=== PATIENT | female | born 1985 | race Two or more races ===

== ENCOUNTER 2024-07-10 14:37 | Inpatient (IN) | payer MEDICAID ==
[~2024-07-10] VITALS: Ht 165.1 cm; Wt 117.8 kg
[2024-07-10 16:21] VITALS: BP 138/83; PULSE 96; RESP 16; TEMP 97.5; O2SAT 97
[2024-07-10] MEDS ORDERED: ETON68IM4 IL (17:33)
[2024-07-10] MEDS ORDERED: LOP12.5T PO (17:33)
[2024-07-10] MEDS ORDERED: mag hydrox/Alum hydrox/simeth 30ml oral suspension PO PRN (17:55)
[2024-07-10] MEDS ORDERED: diphenhydrAMINE 25mg capsule PO PRN (17:55)
[2024-07-10] MEDS ORDERED: acetaminophen 325mg tablet PO PRN (17:55)
[2024-07-10] MEDS ORDERED: magnesium hydroxide 30ml (MOM) UD suspension PO PRN (17:55)
[2024-07-10] MEDS ORDERED: chlorproMAZINE 25mg tablet PO PRN (17:55)
[2024-07-10] MEDS ORDERED: hydrOXYzine 25 MG tablet PO PRN (17:55)
[2024-07-10] MEDS ORDERED: loperamide 2mg capsule PO PRN (17:55)
[2024-07-10] MEDS ORDERED: traZODone 50mg tablet PO PRN (17:55)
[2024-07-10] MEDS ORDERED: NICOTINE POLACRILEX 2 MG LOZENGE BC PRN (17:55)
[2024-07-10 17:58] VITALS: RESP 16; O2SAT 97
[2024-07-10 19:00] VITALS: RESP 16; O2SAT 98
[2024-07-10 20:00] VITALS: BP 139/83; PULSE 89; RESP 16; TEMP 97.5; O2SAT 98
[2024-07-10] MEDS: metoprolol tartrate 25mg tablet PO SCH (20:44)
[2024-07-10] MEDS: acetaminophen 325mg tablet PO PRN (22:06)
[2024-07-11 07:00] VITALS: RESP 16
[2024-07-11 08:00] VITALS: RESP 16
[2024-07-11] MEDS: nicotine 21mg patch - 24 hr TD SCH (08:00)
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
[2024-07-11 10:05] LABS: THYROID STIMULATING HORMONE 0.6 ulU/ml (0.34-4.50)
[2024-07-11 10:14] LABS: HEMOGLOBIN A1C 5.7 % (4.5-6.2)
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
[2024-07-11] MEDS: gabapentin 100mg capsule PO SCH (13:50)
[2024-07-11 19:00] VITALS: RESP 18; O2SAT 98
[2024-07-11 20:00] VITALS: BP 138/81; PULSE 99; RESP 18; TEMP 98.2; O2SAT 98
[2024-07-11] MEDS: fluvoxamine 25 MG tablet PO SCH (21:00)
[2024-07-12 07:00] VITALS: RESP 18; O2SAT 97
[2024-07-12 08:00] VITALS: BP 123/62; PULSE 62; RESP 18; TEMP 96.2; O2SAT 97
[2024-07-12] MEDS: naltrexone 50mg tablet PO SCH (08:21)
[2024-07-12 19:00] VITALS: RESP 17; O2SAT 97
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
[2024-07-12 20:04] VITALS: BP 115/72; PULSE 77; RESP 17; TEMP 97.3; O2SAT 97
[2024-07-12] MEDS: fluvoxamine 25 MG tablet PO ONE (21:22)
[2024-07-13 07:30] VITALS: BP 120/78; PULSE 90; RESP 16; TEMP 97.3; O2SAT 96
[2024-07-13 07:37] VITALS: BP_SYST 120; PULSE 96
[2024-07-13] MEDS ORDERED: NALT50TA5 PO (14:32)
--- NOTE | 2024-07-13 15:13 | DISCHARGE SUMMARY ---
Discharge Summary Discharge Summary Admission Diagnosis: Major Deressive disorder, recurrent severe without psychotic feature Hospital Course DATE OF ADMISSION: 07/10/24 DATE OF DISCHARGE: 07/13/24 Discharge Diagnosis\Comment: Shirley was admitted on 5149 DTS following a suicide attempt where she tried to cut her wrist with her earring. She reported discontinuing her psychiatric medications due to concerns about weight gain. Treatment During Hospitalization: Medications: Shirley was prescribed Luvox 50 mg daily, Gabapentin 200 mg TID, Naltrexone 50 mg daily, and Trazodone 50 mg PRN for insomnia. She refused all medications except for Naltrexone. Therapies: Participated in group therapy sessions focusing on coping strategies and emotional regulation. Consultations: Evaluated by the hospitalist for any medical concerns, none of which required further intervention. Mental Status Examination at Discharge: Appearance: Appropriately dressed, good hygiene Behavior: Cooperative, calm demeanor Speech: Normal rate, volume, and tone Mood: Euthymic Affect: Congruent with mood Thought Process: Logical and coherent Thought Content: Denies suicidal or homicidal ideation Perception: No hallucinations or delusions Cognition: Alert and oriented to person, place, time, and situation Insight and Judgment: Fair Operations\Procedures: n/a Consultants: Hospitalists addressed medical concerns Complications: none Condition on DC: Stable 2 or more antipsychotic used: No 2/more antipsychotic addressed: No Does Patient smoke: Yes Smoking education given.: Yes Discharge Summary: Shirley was picked up by her brother upon discharge. Risk Assessment: Suicide Risk: Low at the time of discharge, denies current suicidal ideation, intent, or plan. Self-Harm Risk: Low, with no current urges to self-harm. Discharge Plan and Instructions: Follow-Up Appointments: Shirley is advised to follow up with a mental health provider within one week post-discharge. Medication Management: Continue Naltrexone 50 mg as prescribed. She has been educated on the importance of medication adherence for mood stabilization. Therapeutic Interventions: Continue outpatient therapy to address emotional regulation and coping strategies. Crisis and Emergency Resources: National Suicide Prevention Lifeline: 9-676-381-TALK ( ) Crisis Text Line: Text HOME to 128570 Local Emergency Services: Call 911 or go to the nearest emergency room if in crisis. *Problems/Diagnosis: (1) Disassociation disorder Status: Chronic (2) Major depressive disorder, recurrent severe without psychotic features Status: Resolved (3) Borderline personality disorder Status: Chronic Total Time Spent on D/C: > 30 Minutes Counseling Services Smoking & Tobacco Cessation: > 10 Minutes CODING VISIT-PSYCHIATRY Date of Service: July 13, 2024 Billing Provider: ANDREW VANEGAS DNP Psych Common Visit Codes: 44652-NOR/OBS DISCH DAY >30min Psych Secondary Visit Codes: [id number] CHNG SMOKING >10MIN ANDREW VANEGAS DNP July 13, 2024 14:56
[2026-04-07] MEDS ORDERED: ETONOGESTREL SQ SCH (08:00)
== END 2024-07-13 17:00 | disposition home or self-care (01) | DRG 751 ==
LOC: ADULT MH 16:21 → UNDOADMIN 16:34 → ADULT MH 16:34
PROVIDERS: ADMIT Psychiatry & Neurology Psychiatry; ATTEND Psychiatry & Neurology Psychiatry
DX: F33.2 Major depressive disorder, recurrent severe without psychotic features (principal); R45.851 Suicidal ideations; E66.01 Morbid (severe) obesity due to excess calories; F60.3 Borderline personality disorder; Z68.41 Body mass index [BMI] 40.0-44.9, adult; Z91.013 Allergy to seafood; Z79.899 Other long term (current) drug therapy; Z88.1 Allergy status to other antibiotic agents; Z88.8 Allergy status to other drugs, medicaments and biological substances; Z72.0 Tobacco use
CPT/HCPCS: 36415; 83036; 84443; 87081